=== PATIENT | male | born 1980 | race Two or more races ===

== ENCOUNTER 2018-06-01 10:51 | Emergency (ER) | payer SELFPAY ==
[~2018-06-01] VITALS: Ht 188 cm; Wt 108.9 kg
[2018-06-01 11:19] VITALS: BP 134/67
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
[2018-06-01] MEDS ORDERED: DICL50TA4 PO (12:18)
[2018-06-01] MEDS ORDERED: CYCL10TA2 PO (12:18)
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
== END 2018-06-01 12:20 | disposition home or self-care (01) ==
LOC: ER 10:51
DX: S46.211A Strain of muscle, fascia and tendon of other parts of biceps, right arm, initial encounter (principal); V47.6XXA Car passenger injured in collision with fixed or stationary object in traffic accident, initial encounter; Y93.89 Activity, other specified; Y92.410 Unspecified street and highway as the place of occurrence of the external cause; Y99.8 Other external cause status
CPT/HCPCS: 73060; 99283